=== PATIENT | male | born 2000 | race Two or more races ===

== ENCOUNTER 2023-04-09 20:30 | Emergency (ER) | payer OTHER ==
[~2023-04-09] VITALS: Ht 167.6 cm; Wt 104.3 kg
[2023-04-09] MEDS ORDERED: AMOX-CLAV 875-1 EACH PO (20:41)
[2023-04-10 03:01] LABS: HEMATOCRIT 41.6 % (39.0-48.0); HEMOGLOBIN 14.3 g/dL (13-16.00); MEAN CELL VOLUME 81.1 fL (80.0-100.00); MEAN CORPUSCULAR HGB CONC 34.5 g/dl (32.0-36.0); PLATELET COUNT 211 K/uL (150-450); RED BLOOD COUNT 5.13 M/uL (4.00-6.00); RED CELL DISTRIBUTION WIDTH 14.1 % (11.5-14.5)
[2023-04-10] MEDS ORDERED: MEDROL8 MG PO (05:16)
[2023-04-10] MEDS ORDERED: ORASEP SPRAY30 ML MM (05:16)
== END 2023-04-10 05:23 ==
LOC: ER 20:31
PROVIDERS: General Practice
DX: J03.90 Acute tonsillitis, unspecified (principal)